=== PATIENT | female | born 1980 | race Caucasian/White ===

== ENCOUNTER 2017-12-11 20:03 | Emergency (ER) | payer OTHER ==
[~2017-12-11] VITALS: Ht 170.2 cm; Wt 49.9 kg
--- NOTE | 2017-12-11 20:05 | NUR ---
VITALS PATIENT REFUSED VITALS AT THIS TIME
--- NOTE | 2017-12-11 20:08 | NUR ---
DR FOUNTAIN AT BEDSIDE TO EVALUATE THE WOUND
[2017-12-11] MEDS ORDERED: TRIPLE ANTIBIOTIC OINTMENT TP ONE (20:09)
--- NOTE | 2017-12-11 20:10 | NUR ---
WOUND CARE CLEANSED WOUND WITH SALINE, PULLED EDGES TO CLOSE APPROXIMATION. APPLIED NEOSPORIN TO FINGER, WRAPPED WITH CONFORM AND COBAN WITH MINIMAL PRESSURE.
--- NOTE | 2017-12-11 20:17 | ER.PDOC ---
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 Bleeding. Where: other Severity: mild, moderate Past Medical History Medical History: no pertinent history Surgical History: no surgical history Social History Smoking: greater than 1 pack/day Alcohol Use: none Drug Use: Meth Review of Systems Constitutional: no symptoms reported All Other Systems: Reviewed and Negative (or unavailable) Physical Exam General Appearance: Alert, Anxious, Moderate Distress, Other (Unclean, unkempt , strong foul body odor.) Wrist: nml inspection Forearm/Elbow: nml inspection Arm/Shoulder: nml inspection Neuro/Vasc/Tendon: sensation nml, motor nml Comments Skin avulsion superficial, distal volar pad LRF. NO active bleeding or FB. Refuses to allow close examination. Progress Progress Pt refused to answer when asked if tet status up to date. Refuses to allow wound to be cleaned. Insists on applying dressing herself. Departure Time of Disposition: 20:15 Disposition: 01 HOME, SELF-CARE Impression: Primary Impression: Injury of left ring finger Condition: Against Medical Advice Patient Instructions: Laceration Care, Adult Additional Instructions: Clean and dress wound daily. Duration or Time Spent with Pa: 15 BALJIT FOUNTAIN DO Dec 11, 2017 20:17
== END 2017-12-11 20:22 | disposition home or self-care (01) ==
LOC: ER 20:03
DX: S69.92XA Unspecified injury of left wrist, hand and finger(s), initial encounter (principal); F17.210 Nicotine dependence, cigarettes, uncomplicated; F15.10 Other stimulant abuse, uncomplicated; W22.8XXA Striking against or struck by other objects, initial encounter; Y93.89 Activity, other specified; Y92.89 Other specified places as the place of occurrence of the external cause; Y99.8 Other external cause status
CPT/HCPCS: 99283